=== PATIENT | male | born 1955 | race African-American/Black ===

== ENCOUNTER 2017-03-05 16:58 | Inpatient (IN) | payer OTHER ==
[~2017-03-05] VITALS: Ht 177.8 cm; Wt 86.6 kg
[2017-03-05] MEDS ORDERED: LISI10TA5 PO (17:06)
[2017-03-05] MEDS ORDERED: ASPIRIN 81MG TABLET PO STA (17:24)
[2017-03-05 17:50] LABS: BASOPHILS % 0.4 % (0.0-2.0); D-DIMER 0.39 mg/L FEU (<0.50); EOSINOPHILS % 5.8 % (0.0-5.0); HEMATOCRIT. 45.9 % (42.0-52.0); HEMOGLOBIN. 15.4 g/dL (14.0-18.0); LYMPHOCYTES % 41.3 % (20.0-50.0); MEAN CORPUSCULAR HEMOGLOBIN 30.6 pg (28.0-32.0); MEAN CORPUSCULAR VOLUME 91.4 fL (80.0-94.0); MEAN PLATELET VOLUME 6.8 fl (7.4-10.4); MONOCYTES % 8.8 % (2.0-8.0); NEUTROPHILS % 43.7 % (40.0-76.0); PARTIAL THROMBOPLASTIN TIME 26.5 sec (23.4-31.0); PLATELET 246 x1000/uL (130-400); PROTHROMBIN TIME 10.3 sec (9.4-11.6); RED BLOOD CELL COUNT 5.02 mill/uL (4.7-6.1); RED CELL DISTRIBUTION WIDTH 13.3 % (11.6-14.6)
[2017-03-05 17:52] LABS: CARBON DIOXIDE 25 mEq/L (21-32); CHLORIDE 107 mEq/L (98-107)
[2017-03-05 17:55] LABS: TROPONIN I < 0.02 ng/mL (0.00-0.04)
[2017-03-05] MEDS ORDERED: POTASSIUM CHLORIDE 20MEQ TABLET SR PO ONE (20:00)
[2017-03-06 01:58] VITALS: BP 127/87
[2017-03-06] MEDS ORDERED: LIPITOR PO (02:16)
[2017-03-06] MEDS ORDERED: ASPI-1159 PO (02:16)
[2017-03-06 04:00] VITALS: BP 126/81
[2017-03-06 07:43] VITALS: BP 130/81
[2017-03-06] MEDS ORDERED: IPRATROPIUM/ALBUTEROL 0.5-3(2.5)MG/3ML NEB INH PRN (08:00)
[2017-03-06] MEDS ORDERED: DOCUSATE SODIUM 100MG CAPSULE PO PRN (08:00)
[2017-03-06] MEDS ORDERED: ACETAMINOPHEN 650MG/20.3ML UDC GT PRN (08:00)
[2017-03-06] MEDS ORDERED: NA PHOS,M-B/NA PHOS,DI-BA ENEMA 118ML PR PRN (08:00)
[2017-03-06] MEDS ORDERED: ACETAMINOPHEN 325MG TABLET PO PRN (08:00)
[2017-03-06] MEDS ORDERED: CLONIDINE 0.1MG TABLET PO PRN (08:00)
[2017-03-06] MEDS ORDERED: GUAIFENESIN 200MG/10ML SUGAR FREE UDC PO PRN (08:00)
[2017-03-06] MEDS ORDERED: ACETAMINOPHEN 650MG SUPP PR PRN (08:00)
[2017-03-06] MEDS ORDERED: DIPHENHYDRAMINE 50MG/ML VIAL IV PRN (08:00)
[2017-03-06] MEDS ORDERED: MAGNESIUM/ALUMINUM HYDROXIDE/SIMETHICONE 30ML UDC PO PRN (08:00)
[2017-03-06 08:44] LABS: EOSINOPHILS % 9.1 % (0.0-5.0); HEMOGLOBIN. 15.7 g/dL (14.0-18.0); LYMPHOCYTES % 38.6 % (20.0-50.0); MEAN CORPUSCULAR HEMOGLOBIN 31.3 pg (28.0-32.0); MEAN CORPUSCULAR VOLUME 91.9 fL (80.0-94.0); MEAN PLATELET VOLUME 7.5 fl (7.4-10.4); MONOCYTES % 11.9 % (2.0-8.0); NEUTROPHILS % 39.4 % (40.0-76.0); PLATELET 226 x1000/uL (130-400); RED CELL DISTRIBUTION WIDTH 13.4 % (11.6-14.6)
[2017-03-06 08:57] LABS: CARBON DIOXIDE 25 mEq/L (21-32); CHLORIDE 108 mEq/L (98-107)
[2017-03-06] MEDS ORDERED: ASPIRIN 81MG EC TABLET PO NR (10:20)
[2017-03-06] MEDS: AMLODIPINE 5MG TABLET PO SCH (11:32)
[2017-03-06 11:52] VITALS: BP 128/73
[2017-03-06] MEDS: SODIUM CHLORIDE 0.9% INJ 3ML FLUSH IVF SCH ×2 (14:33→21:30)
[2017-03-06 15:36] LABS: *AMPHETAMINES SCREEN URINE NEGATIVE (NEGATIVE); *BARBITURATES SCREEN URINE NEGATIVE (NEGATIVE); *BENZODIAZEPINES SCREEN URINE NEGATIVE (NEGATIVE); *COCAINE SCREEN URINE PRESUMTIVE POSITIVE (NEGATIVE); CANNABINOID URINE SCREEN NEGATIVE (NEGATIVE); METHADONE URINE SCREEN NEGATIVE (NEGATIVE); OPIATES URINE SCREEN NEGATIVE (NEGATIVE); PHENCYCLIDINE URINE SCREEN NEGATIVE (NEGATIVE)
[2017-03-06 16:23] LABS: CREATINE KINASE 84 IU/L (39-308); TROPONIN I < 0.02 ng/mL (0.00-0.04)
[2017-03-06 17:27] VITALS: BP 132/76
[2017-03-06 20:20] VITALS: BP 127/79
[2017-03-06] MEDS ORDERED: ATORVASTATIN CALCIUM 20MG TABLET PO SCH (21:00)
[2017-03-07] LABS: CREATINE KINASE 78 IU/L (39-308); TROPONIN I < 0.02 ng/mL (0.00-0.04)
[2017-03-07 00:36] VITALS: BP 122/84
[2017-03-07 04:00] VITALS: BP 112/75
[2017-03-07 06:33] LABS: BASOPHILS % 0.7 % (0.0-2.0); EOSINOPHILS % 8.5 % (0.0-5.0); HEMATOCRIT. 43.5 % (42.0-52.0); HEMOGLOBIN. 14.8 g/dL (14.0-18.0); LYMPHOCYTES % 34.2 % (20.0-50.0); MEAN CORPUSCULAR HEMOGLOBIN 31.4 pg (28.0-32.0); MEAN CORPUSCULAR VOLUME 92.2 fL (80.0-94.0); MEAN PLATELET VOLUME 7.1 fl (7.4-10.4); MONOCYTES % 10.3 % (2.0-8.0); NEUTROPHILS % 46.3 % (40.0-76.0); PLATELET 224 x1000/uL (130-400); RED BLOOD CELL COUNT 4.71 mill/uL (4.7-6.1); RED CELL DISTRIBUTION WIDTH 13.3 % (11.6-14.6)
[2017-03-07] MEDS: SODIUM CHLORIDE 0.9% INJ 3ML FLUSH IVF SCH ×2 (07:02→13:39)
[2017-03-07 08:24] VITALS: BP 129/84
[2017-03-07 08:34] LABS: CARBON DIOXIDE 28 mEq/L (21-32); CHLORIDE 108 mEq/L (98-107); HDL CHOLESTEROL 66 mg/dL (40-59); LDL CHOLESTEROL 47 mg/dL (5-100)
[2017-03-07] MEDS ORDERED: ASPIRIN 81MG EC TABLET PO SCH (09:00)
[2017-03-07] MEDS: AMLODIPINE 5MG TABLET PO SCH (09:20)
[2017-03-07 12:32] VITALS: BP 134/91
[2017-03-07 16:59] VITALS: BP 137/83
== END 2017-03-07 19:08 | disposition short-term general hospital (02) | DRG 313 ==
LOC: ER 17:33 → 6WST 20:57 → EDBEDREQ 21:03 → EDBEDREQTM 21:03 → ENRESERV 23:27
PROVIDERS: ADMIT Family Medicine; ATTEND Family Medicine
DX: R07.89 Other chest pain (principal); I11.9 Hypertensive heart disease without heart failure; E78.00 Pure hypercholesterolemia, unspecified; E87.6 Hypokalemia; F17.210 Nicotine dependence, cigarettes, uncomplicated; Z79.82 Long term (current) use of aspirin; Z79.899 Other long term (current) drug therapy; Z86.73 Personal history of transient ischemic attack (TIA), and cerebral infarction without residual deficits; Z88.0 Allergy status to penicillin
CPT/HCPCS: 36415; 71045; 80048; 80053; 80061; 80305; 82550; 84484; 85025; 85379; 85610; 85730; 93005; 93306; 93970; 97162; 99285